=== PATIENT | male | born 1990 | race Caucasian/White ===

== ENCOUNTER 2016-11-21 20:45 | Emergency (ER) | payer SELFPAY | END 2016-11-21 23:05 | disposition home or self-care (01) | LOC: FER 20:45 | DX: K04.7 Periapical abscess without sinus (principal); F17.210 Nicotine dependence, cigarettes, uncomplicated; Z88.8 Allergy status to other drugs, medicaments and biological substances ==

== ENCOUNTER 2021-05-08 07:04 | Day surgery (SDCO) | payer OTHER ==
[~2021-05-08] VITALS: Ht 172.7 cm; Wt 58.1 kg
[~2021-05-08 07:04] MED LIST: DICLOFENAC SODI75 MG PO; NAPROSYN375 MG PO; ZPAK PO; ZYRTEC10 MG PO
[2021-05-08 08:32] LABS: BASOPHIL 0.3 % (0-2); EOSINOPHIL 0.4 % (0-5); HCT 50.8 % (42.0-52.0); HGB 17.7 g/dl (13.2-18.0); LYMPHOCYTE 23.5 % (15-48); MCHC 34.8 g/dL (32.0-36.0); MCV 86.1 fL (78.0-100.0); MONOCYTE 10.8 % (0-12); MPV 9.6 fL (6.0-9.5); NEUTROPHIL 64.2 % (41-80); NRBC 0; PLT 314 K/uL (150-400); RDW 11.8 % (11.5-14.0); WBC 9.7 K/uL (4.0-10.5)
[2021-05-08 08:32] LABS: BILIRUBIN NEGATIVE (NEGATIVE); BLOOD NEGATIVE Ery/uL (NEGATIVE); CLARITY CLEAR (CLEAR); COLOR YELLOW (YELLOW); GLUCOSE (U) NORMAL (NORMAL); LEUKOCYTES NEGATIVE Leu/uL (NEGATIVE); NITRITE NEGATIVE (NEGATIVE); PROTEIN NEGATIVE (NEGATIVE); UROBILINOGEN 0.2 mg/dL (0.2-1.0)
[2021-05-08 08:42] LABS: ALBUMIN 4.6 g/dL (3.4-5.0); BILIRUBIN - TOTAL 1.1 mg/dL (0.2-1.0); BUN/CREAT RATIO (CALC) 11.6 RATIO; CREATININE 1.55 mg/dL (0.67-1.17); GLOBULIN (CALCULATION) 3.8 g/dL; POTASSIUM 3.5 mmol/L (3.5-5.1); TOTAL PROTEIN 8.4 g/dL (6.4-8.2)
[2021-05-08] MEDS ORDERED: PREDNISONE 20MG20 MG PO (11:48)
[2021-05-08] MEDS ORDERED: BENADRYL25 M1 PO (11:49)
[2021-05-09 06:34] LABS: BASOPHIL 0.2 % (0-2); EOSINOPHIL 0.2 % (0-5); HCT 39.8 % (42.0-52.0); HGB 13.6 g/dl (13.2-18.0); LYMPHOCYTE 11.6 % (15-48); MCH 30.2 pg (25.0-31.0); MCHC 34.2 g/dL (32.0-36.0); MCV 88.2 fL (78.0-100.0); MONOCYTE 7.4 % (0-12); MPV 9.1 fL (6.0-9.5); NEUTROPHIL 79.8 % (41-80); NRBC 0; PLT 209 K/uL (150-400); RBC 4.51 M/uL (4.70-6.00); RDW 11.7 % (11.5-14.0); WBC 12.3 K/uL (4.0-10.5)
[2021-05-09 06:54] LABS: BUN/CREAT RATIO (CALC) 9.4 RATIO; CREATININE 1.17 mg/dL (0.67-1.17); POTASSIUM 3.8 mmol/L (3.5-5.1)
[2021-05-09 07:58] LABS: LYMPHOCYTE(M) 10 % (15-48); MONOCYTE(M) 10 % (0-12); NEUTROPHILS(M) 78 % (41-80); PROMYELOCYTE 2; TOTAL CELL COUNT 100
[2021-05-09 07:59] LABS: PLATELET ESTIMATE NORMAL; PLATELET MORPHOLOGY NORMAL
[2021-05-09] MEDS ORDERED: AUGMENTIN 875-1 EACH PO (11:31)
[2021-05-09] MEDS ORDERED: PERCOCET 5-3251 EACH PO (11:31)
== END 2021-05-09 13:47 | disposition home or self-care (01) ==
LOC: FER 07:04 → FOR 11:03 → FMS 15:29
PROVIDERS: Emergency Medicine; ADMIT Surgery
DX: K35.80 Unspecified acute appendicitis (principal); K38.8 Other specified diseases of appendix; K42.9 Umbilical hernia without obstruction or gangrene; J45.909 Unspecified asthma, uncomplicated; Z88.8 Allergy status to other drugs, medicaments and biological substances; Z79.899 Other long term (current) drug therapy; Z20.822 Contact with and (suspected) exposure to COVID-19
CPT/HCPCS: 36415; 80048; 80053; 81003; 83690; 85025; 86850; 86900; 86901; G0378; J1100; J1170; J2250; J2405; J2543; J2550; J2704; J2710; J3010; J7030; J7120; Q9967; U0002

== ENCOUNTER 2021-08-08 02:21 | Emergency (ER) | payer OTHER ==
[~2021-08-08 02:21] MED LIST changes: +AUGMENTIN 875-1 EACH PO; +BENADRYL25 M1 PO; +PERCOCET 5-3251 EACH PO; +PREDNISONE 20MG20 MG PO
[2021-08-08 03:19] LABS: BASOPHIL 0.2 % (0-2); EOSINOPHIL 1.3 % (0-5); HCT 43.5 % (42.0-52.0); HGB 15.1 g/dl (13.2-18.0); LYMPHOCYTE 16.7 % (15-48); MCHC 34.7 g/dL (32.0-36.0); MCV 86.3 fL (78.0-100.0); MONOCYTE 11.3 % (0-12); MPV 9.7 fL (6.0-9.5); NEUTROPHIL 69.9 % (41-80); NRBC 0; PLT 239 K/uL (150-400); RBC 5.04 M/uL (4.70-6.00); WBC 10.1 K/uL (4.0-10.5)
[2021-08-08 03:32] LABS: ALBUMIN 4.2 g/dL (3.4-5.0); BILIRUBIN - TOTAL 0.7 mg/dL (0.2-1.0); BUN/CREAT RATIO (CALC) 19.7 RATIO; CREATININE 0.76 mg/dL (0.67-1.17); POTASSIUM 3.6 mmol/L (3.5-5.1); TOTAL PROTEIN 7.2 g/dL (6.4-8.2)
== END 2021-08-08 05:10 | disposition home or self-care (01) ==
LOC: FER 02:21
PROVIDERS: Emergency Medicine
DX: R09.1 Pleurisy (principal); R07.89 Other chest pain
CPT/HCPCS: 36415; 71045; 80053; 84484; 85025; 85379; 93005; J1885